=== PATIENT | male | born 1980 | race Caucasian/White ===

== ENCOUNTER 2017-06-01 20:03 | Emergency (ER) | payer MEDICAID ==
[~2017-06-01] VITALS: Ht 193 cm; Wt 79.4 kg
--- NOTE | 2017-06-01 20:10 | NUR ---
TO BED 6 A 36 YO MALE PATIENT BB SELFW C/O HEADACHE, NAUSEA, COLD SWEATS X 3 DAYS. PATIENT IS AAOX4, AMBULATORY, NAD NOTED. VSS. NONDIAPHORETIC AT THIS TIME. AFEBRILE. COMFORT MEASURES RENDERED. AWAITING FOR ER MD MAURICE.
--- NOTE | 2017-06-01 21:33 | NUR ---
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
[2017-06-01 21:45] LABS: BASOPHILS # (AUTO) 0.1 /CMM (0.0-0.2); BASOPHILS % (AUTO) 1.2 % (0.0-2.0); EOSINOPHILS # (AUTO) 0.1 /CMM (0.0-0.7); EOSINOPHILS % (AUTO) 2.3 % (0.0-6.0); HEMATOCRIT 46 % (39-51); HEMOGLOBIN 15.6 g/dL (13.5-17.5); LYMPHOCYTES # (AUTO) 1.7 /CMM (0.8-4.8); MEAN CORPUSCULAR HEMOGLOBIN 32 PG (26.0-33.0); MEAN CORPUSCULAR HGB CONC 34 g/dl (31.0-36.0); MEAN CORPUSCULAR VOLUME 93 fL (80-96); MONOCYTES # (AUTO) 0.5 /CMM (0.1-1.30); MONOCYTES % (AUTO) 8.6 % (2.0-12.0); NEUTROPHILS # (AUTO) 3.5 /CMM (1.8-8.9); NEUTROPHILS % (AUTO) 58.9 % (43.0-81.0); PLATELET COUNT (AUTO) 189 /CMM (150-450); RED BLOOD CELL COUNT(AUTO) 4.92 MIL/uL (4.5-6.0); WHITE BLOOD COUNT (AUTO) 5.9 K/uL (4.3-11.0)
[2017-06-01 21:47] LABS: CALCIUM, SERUM 8.9 mg/dL (8.5-10.1); POTASSIUM 3.9 mmol/L (3.5-5.1)
[2017-06-01 22:17] VITALS: BP 127/82
--- NOTE | 2017-06-01 22:17 | NUR ---
Patient discharged to home in stable condition. Written and verbal after care instructions given. Patient verbalizes understanding of instruction. Patient is ambulatory with steady gait, no further complaints.
== END 2017-06-01 22:18 | disposition home or self-care (01) ==
LOC: ER 20:05
DX: R51 Headache (principal); F41.9 Anxiety disorder, unspecified
CPT/HCPCS: 36415; 70450; 80048; 85025; 99285; A4606; Z7610